=== PATIENT | female | born 1995 | race African-American/Black ===

== ENCOUNTER → 2024-04-13 | Emergency (ER) | payer OTHER ==
[~2024-04-13] VITALS: Ht 172.7 cm; Wt 72.6 kg
[~2024-04-13] MED LIST: ALBU18HF2 INH; AZIT250T13 PO; METH4TAB3 PO
[2024-04-13 21:32] VITALS: BP 129/70; TEMP 98.4; O2SAT 98
== END | disposition home or self-care (01) ==
LOC: ER 20:38
DX: J45.901 Unspecified asthma with (acute) exacerbation (principal); J22 Unspecified acute lower respiratory infection; Z60.2 Problems related to living alone

== ENCOUNTER 2024-09-27 09:57 | Emergency (ER) | payer OTHER ==
[~2024-09-27] VITALS: Ht 162.6 cm; Wt 63.5 kg
[2024-09-27 10:07] VITALS: BP 122/90; TEMP 98.3; O2SAT 97
[2024-09-27] MEDS ORDERED: CEFTRIAXONE 500 MG VIAL ONE (11:01)
[2024-09-27] MEDS ORDERED: DOXYCYCLINE HYCLATE (100 MG) 100 MG TABLET ONE (11:01)
[2024-09-27] MEDS ORDERED: LIDOCAINE /MPF 1% VIAL 5 ML VIAL ONE (11:01)
[2024-09-27] MEDS: CEFTRIAXONE 500 MG VIAL IM ONE (11:10)
[2024-09-27] MEDS: DOXYCYCLINE HYCLATE (100 MG) 100 MG TABLET PO ONE (11:11)
[2024-09-27 11:37] LABS: APPEARANCE,URINE CLEAR (CLEAR); BILIRUBIN,URINE NEGATIVE (NEGATIVE); BLOOD, URINE NEGATIVE Ery/uL (NEGATIVE); COLOR,URINE YELLOW (YELLOW); KETONES,URINE TRACE mg/dL (NEGATIVE); LEUKOCYTE ESTERASE ,URINE NEGATIVE (NEGATIVE); NITRITE, URINE NEGATIVE (NEGATIVE); PROTEIN,URINE NEGATIVE (NEGATIVE); UGLUCOSE NEGATIVE (NEGATIVE); UROBILINOGEN,URINE 0.2 EU/dL (0.2)
[2024-09-27 11:53] LABS: ADD URINE CULTURE NO; BACTERIA,URINE Rare /HPF (None Seen); RBC,URINE 0-2 /HPF (0-2)
[2024-09-27] MEDS ORDERED: DOXY-326 PO (12:02)
[2024-09-27] MEDS ORDERED: POLY10DR OP (12:02)
[2024-09-28 15:18] LABS: HIV-1 p24 ANTIGEN NON REACTIVE (NONREACTIVE); HIV-1/2 ANTIBODY NON REACTIVE (NONREACTIVE)
[2024-09-29 06:10] LABS: RAPID PLASMA REAGIN QUAL. Non Reactive (Non Reactive)
== END 2024-09-27 12:22 | disposition home or self-care (01) ==
LOC: ER 10:06
DX: H10.9 Unspecified conjunctivitis (principal); A64 Unspecified sexually transmitted disease; H57.89 Other specified disorders of eye and adnexa; Z60.2 Problems related to living alone
CPT/HCPCS: 99283; 96372; 81001; 87806; 87491; 87591; J0696; J3490; 36415; 86592; 86593